=== PATIENT | female | born 1995 | race Caucasian/White ===

== ENCOUNTER 2017-12-25 18:06 | Emergency (ER) | payer OTHER ==
[2017-12-25 18:43] LABS: BASOPHILS % (AUTO) 0.4 %; EOSINOPHILS # (AUTO) 0.1 10^3/uL (0.0-0.7); EOSINOPHILS % (AUTO) 0.8 %; LYMPHOCYTES # (AUTO) 2.4 10^3/uL (1.5-3.5); LYMPHOCYTES % (AUTO) 33.4 %; MEAN CORPUSCULAR HEMOGLOBIN 27.8 pg (27.0-31.0); MEAN CORPUSCULAR HGB CONC 33.4 g/dL (32.0-36.0); MEAN CORPUSCULAR VOLUME 83.1 fL (81.0-99.0); MEAN PLATELET VOLUME 7.6 fL (7.9-10.8); MONOCYTES # (AUTO) 0.4 10^3/uL (0.0-1.0); MONOCYTES % (AUTO) 5.2 %; NEUTROPHILS # (AUTO) 4.4 10^3/uL (1.5-6.6); NEUTROPHILS % (AUTO) 60.2 %; PLT - PLATELET COUNT 287 10^3/uL (130-450); RED BLOOD COUNT 4.32 10^6/uL (4.20-5.40); RED CELL DISTRIBUTION WIDTH 13.3 % (12.0-15.0); WHITE BLOOD COUNT 7.2 x10^3/uL (4.8-10.8)
[2017-12-25 18:51] LABS: ALBUMIN 4.3 g/dL (3.2-5.5); ALBUMIN/GLOBULIN RATIO 1.3 (1.0-2.2); BILIRUBIN,TOTAL 0.4 mg/dL (0.2-1.0); CALCIUM 9.1 mg/dL (8.5-10.3); CREATININE 0.5 mg/dL (0.4-1.0); TOTAL PROTEIN 7.6 g/dL (6.7-8.2)
--- NOTE | 2017-12-25 18:53 | XRAY Report ---
EXAM: CHEST RADIOGRAPHY EXAM DATE: 12/25/2017 06:45 PM. CLINICAL HISTORY: Chest pain. COMPARISON: None. TECHNIQUE: 2 views. FINDINGS: Lungs/Pleura: Clear. No effusion or pneumothorax. Mediastinum: Heart and mediastinal contours are unremarkable. Upper lobe vessels not distended. Other: None. IMPRESSION: Normal 2-view chest radiography. [facility] Referring Provider Line: [phone] SITE ID: [id number]
--- NOTE | 2017-12-25 19:58 | ED Physician Documentation ---
PD HPI CHEST PAIN - Stated complaint Stated Complaint: CHEST PAIN - Chief complaint Chief Complaint: Cardiac - History obtained from History obtained from: Patient - History of Present Illness Timing - onset: How many hours ago (7), Today Timing - onset during: Light activity Timing - duration: Hours (7) Timing - details: Abrupt onset, Still present Quality: Pressure, Tightness. No: Aching, Sharp Location: Substernal, Left chest Radiation: Neck, Left upper extremity Improved by: No: Rest, Nitro Worsened by: Exertion. No: Inspiration, Movement, Palpation Associated symptoms: Shortness of air, General Weakness. No: Diaphoresis, Nausea, Vomiting, Feeling faint / dizzy, Palpitations Similar symptoms before: No diagnosis (has had similar in the past lasting just hour or so, without obvious triggers (not strictly associated with activity, eating, position.) Recently seen: Clinic (went to PCP and was Rx NTG to use PRN. Given referral to Cardiology for ECHO and stress testing. This is upcoming.) Review of Systems Constitutional: denies: Fever, Chills Nose: denies: Rhinorrhea / runny nose, Congestion Throat: denies: Sore throat Cardiac: reports: Chest pain / pressure. denies: Palpitations, Pedal edema, Calf pain Respiratory: denies: Dyspnea, Cough, Wheezing GI: denies: Abdominal Pain, Nausea, Vomiting, Diarrhea Musculoskeletal: denies: Extremity swelling Neurologic: denies: Focal weakness, Numbness, Near syncope PD PAST MEDICAL HISTORY - Past Medical History Past Medical History: No Cardiovascular: None Respiratory: None Neuro: None Endocrine/Autoimmune: None GI: None MILLWRIGHT: None : None HEENT: None Psych: None Musculoskeletal: None Derm: None - Past Surgical History Past Surgical History: No - Present Medications Home Medications: Ambulatory Orders Medication Instructions Recorded Confirmed Aspirin 81 mg PO 12/25/17 Isosorbide Mononitrate ER [Imdur] 30 mg PO DAILY 12/25/17 12/25/17 Nitroglycerin 0.3 mg SL 12/25/17 Tramadol HCl 50 mg PO Q6H PRN #20 tablet 12/25/17 - Allergies Allergies/Adverse Reactions: Allergies Allergy/AdvReac Type Severity Reaction Status Date / Time No Known Drug Allergies Allergy Verified 12/25/17 18:20 - Social History Does the pt smoke?: No Smoking Status: Never smoker Does the pt drink ETOH?: No Does the pt have substance abuse?: No - Immunizations Immunizations are current?: Yes - POLST Patient has POLST: No PD ED PE NORMAL - Vitals Vital signs reviewed: Yes - General General: Alert and oriented X 3, Well developed/nourished, Other (holding hands to chest) - HEENT HEENT: Moist mucous membranes, Pharynx benign - Neck Neck: Supple, no meningeal sign, No adenopathy - Cardiac Cardiac: RRR, No murmur - Respiratory Respiratory: Clear bilaterally, Other (no chestwall tenderness. ) - Abdomen Abdomen: Soft, Non tender - Back Back: No CVA TTP - Derm Derm: Normal color, Warm and dry - Extremities Extremities: No deformity, No tenderness to palpate, Normal ROM s pain, No edema , No calf tenderness / cord - Neuro Neuro: Alert and oriented X 3, No motor deficit, Normal speech - Psych Psych: Normal mood, Normal affect Results - Vitals Vitals: Oxygen O2 Source Room air - EKG (time done) 17:29 Rate: Rate (enter#) (75) Rhythm: NSR [place]: Normal Intervals: Normal MS QRS: Normal Ischemia: Normal ST segments. No: ST elevation c/w ischemia, ST depression Compare to prior EKG: Old EKG unavailable - Labs Labs: Laboratory Tests 12/25/17 12/25/17 12/25/17 18:30 18:30 18:30 WBC 7.2 RBC 4.32 Hgb 12.0 Hct 35.9 L MCV 83.1 MCH 27.8 MCHC 33.4 RDW 13.3 Plt Count 287 MPV 7.6 L Neut # 4.4 Lymph # 2.4 Hand # 0.4 Eos # 0.1 Baso # 0.0 Absolute Nucleated RBC 0.00 Nucleated RBC % 0.1 Sodium 136 Potassium 3.6 Chloride 102 Carbon Dioxide 26 Anion Gap 8.0 BUN 16 Creatinine 0.5 Estimated GFR (MDRD) 152 Glucose 101 H Calcium 9.1 Total Bilirubin 0.4 AST 13 ALT 12 Alkaline Phosphatase 55 Troponin I < 0.04 Total Protein 7.6 Albumin 4.3 Globulin 3.3 Albumin/Globulin Ratio 1.3 Lipase 19 L - Rads (name of study) chest Radiology: Prelim report reviewed, EMP read contemporaneously (no acute changes) PD MEDICAL DECISION MAKING - ED course Complexity details: reviewed results, considered differential (chest pain atypical for CAD and she is young demographically. No obvious cardiomyopathy. ) , d/w patient Departure - Departure Disposition: 01 Home, Self Care Clinical Impression: Chest pain Qualifiers: Chest pain type: unspecified Qualified Code(s): R07.9 - Chest pain, unspecified Condition: Stable Record reviewed to determine appropriate education?: Yes Instructions: ED Chest Pain Atypical Unkn Cause Prescriptions: Tramadol HCl 50 mg PO Q6H PRN #20 tablet PRN Reason: Pain Comments: Your ECG, chest xray and basic labs are okay here. No signs of significant cause for the pain. It is not clear the cause of the symptoms at this time. Could be muscular or some chest inflammation. I would use some Ibuprofen or Naproxen twice daily for a few days. Add Tylenol and /or Tramadol as needed for pains. Follow up with PMD/[facility] Affairs Dean as planned for the further tests to fully exclude heart causes. Discharge Date/Time: 12/25/17 20:36
[2017-12-25] MEDS ORDERED: KETOROLAC 60 MG/2 ML VIAL IVP STA (20:20)
[2017-12-25] MEDS ORDERED: ACETAMINOPHEN 325 MG TABLET PO STA (20:21)
[2017-12-25] MEDS ORDERED: METHOCARBAMOL 500 MG TABLET PO STA (20:24)
[2017-12-25 20:31] VITALS: BP 115/77
== END 2017-12-25 20:36 | disposition home or self-care (01) ==
LOC: EDBD → ED 18:06
DX: R07.9 Chest pain, unspecified (principal)
CPT/HCPCS: 36415; 71046; 80053; 83690; 84484; 85025; 93005; 96374; 99283; 99284; A9270